=== PATIENT | male | born 1965 | race Caucasian/White ===

== ENCOUNTER 2023-09-18 03:12 | Outpatient (CLI) | payer BC, SELFPAY ==
[2023-09-18 08:36] LABS: Hemoglobin A1C 6.3 % (<5.7)
== END 2023-09-18 03:13 | disposition home or self-care (01) ==
PROVIDERS: Visit Provider Nurse Practitioner Family
DX: E11.9 Type 2 diabetes mellitus without complications (principal)
CPT/HCPCS: 36415; 83036